=== PATIENT | male | born 1970 | race African-American/Black ===

== ENCOUNTER 2021-12-25 04:08 | Emergency (ER) | payer OTHER ==
[~2021-12-25] VITALS: Ht 182.9 cm; Wt 95.4 kg
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
[2021-12-25] MEDS ORDERED: KETOROLAC 30 MG/ML VIAL. IVP ONE ×3 (04:15→05:00)
[2021-12-25] MEDS ORDERED: FAMOTIDINE 20 MG/2 ML VIAL ONE (04:29)
[2021-12-25 04:38] LABS: BASO # 0.1 x10^3/uL (0.0-0.2); BASO % 1 % (0-3); EOS # 0.1 x10^3/uL (0.0-0.7); EOS % 1 % (0-3); HEMATOCRIT 41.8 % (39.0-53.0); HEMOGLOBIN 13.8 g/dL (13.0-17.5); LYMPH # 3.5 x10^3/uL (1.0-4.8); LYMPH % 44 % (24-48); MEAN CORPUSCULAR HEMOGLOBIN 31 pg (25-35); MEAN CORPUSCULAR HGB CONC 33 g/dL (31-37); MEAN CORPUSCULAR VOLUME 93 fL (79-100); MONO # 0.7 x10^3/uL (0.0-1.1); MONO % 8 % (0-9); NEUT # 3.6 x10^3uL (1.8-7.7); NEUT % 45 % (31-73); PLATELET COUNT 290 x10^3/uL (140-400); RED BLOOD COUNT 4.47 x10^6/uL (4.30-5.70); RED CELL DISTRIBUTION WIDTH 14.4 % (11.5-14.5)
[2021-12-25 04:44] LABS: BACTERIA,URINE 0 /HPF (0-FEW); BILIRUBIN,URINE NEG (NEG); CLARITY,URINE CLEAR; COLOR,URINE YELLOW; GLUCOSE,URINE NEG (NEG); NITRITE,URINE NEG (NEG); RBC,URINE OCC /HPF (0-2); SQUAMOUS EPITHELIAL CELL,UR OCC /LPF; WBC,URINE OCC /HPF (0-4)
[2021-12-25 04:48] LABS: ANION GAP 9 (6-14); BLOOD UREA NITROGEN 13 mg/dL (8-26); CALCIUM 9.1 mg/dL (8.5-10.1); CARBON DIOXIDE 27 mmol/L (21-32); CHLORIDE 100 mmol/L (98-107); CREATININE 1.2 mg/dL (0.7-1.3); GFR 64.4; GLUCOSE 96 mg/dL (70-99); POTASSIUM 3.7 mmol/L (3.5-5.1); SODIUM 136 mmol/L (136-145)
[2021-12-25 04:53] LABS: ALBUMIN 3.6 g/dL (3.4-5.0); ALK PHOS 81 U/L (46-116); ALT (SGPT) 21 U/L (16-63); AST (SGOT) < 5 U/L (15-37); DIRECT BILIRUBIN 0.1 mg/dL (0.0-0.2); LIPASE 126 U/L (73-393); TOTAL BILIRUBIN 0.2 mg/dL (0.2-1.0); TOTAL PROTEIN 8.2 g/dL (6.4-8.2)
[2021-12-25 04:53] LABS: BARBITURATES NEG (NEG); BENZODIAZEPINES NEG (NEG); CANNABINOIDS NEG (NEG); COCAINE NEG (NEG); METHADONE NEG (NEG); OPIATES NEG (NEG); PHENCYCLIDINE NEG (NEG)
[2021-12-25 04:58] LABS: AMPHETAMINE/METHAMPHETAMINE NEG (NEG)
--- NOTE | 2021-12-25 04:58 | RAD ---
Abdominal and Pelvis CT, Without Contrast: History: Reason: Severe right flank pain / Spl. Instructions: / History: Comparison: None. Procedure: Axial images are obtained of the abdomen and pelvis, without IV or oral contrast. Oral Contrast: No Findings: Evaluation of solid organs is limited without contrast. Liver: Normal. Spleen: Normal. Pancreas: Normal. Adrenal Glands: Normal. Kidneys: There is multiple cysts on the left. There is no free air or free fluid. There is calcifications in the bita hepatis which could be calcified granuloma. The gallbladder is normal. The appendix is normal. The urinary bladder appears normal. There is no pericolonic inflammation identified. Impression: No acute findings. End impression PQRS Compliance Statement: One or more of the following individualized dose reduction techniques were utilized for this examinat ion: 1. Automated exposure control 2. Adjustment of the mA and/or kV according to patient size 3. Use of iterative reconstruction technique Electronically signed by: Justin Harmon III, MD (12/25/2021 4:55 AM) [facility]
[2021-12-25] MEDS ORDERED: FAMOTIDINE 20 MG/2 ML VIAL IVP ONE (05:00)
[2021-12-25] MEDS ORDERED: IV RINGERS SOLUTION,LACTATED 1,000 ML IV SCH (05:00)
[2021-12-25] MEDS ORDERED: ONDANSETRON PF 4 MG/2 ML VIAL. IVP ONE ×2 (05:00→06:30)
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
[2021-12-25] MEDS ORDERED: CONTRAST GIVEN. MC PRN (05:15)
[2021-12-25] MEDS ORDERED: IOHEXOL 350 MG/ML 100 ML VIAL. IV ONE (05:30)
--- NOTE | 2021-12-25 05:43 | RAD ---
CTA Chest with contrast: Clinical History: Dyspnea and pulmonary nodule. Axial helical images of the chest were obtained after the administration of 100 cc of IV Omnipaque 35 0 and timed appropriately for a pulmonary arterial study. Conventional axial reconstruction was perf ormed in addition to coronal, sagittal and bilateral oblique MIP (maximum intensity projection). Thi s study was ordered to detect possible pulmonary embolism. There are no filling defects to suggest pulmonary embolism. There is a 2.3 x 1.9 cm spiculated mass in right upper lobe. There is a 1.1 cm spiculated mass in thi s diffuse emphysematous changes lungs. This calcified granuloma in the mediastinum. The right lower l obe. The thoracic aorta appears normal. Impression: 1. No evidence of pulmonary embolism. 2. 2 masses on the right unchanged from prior study. There has been previous biopsy. Recommend corre lation with biopsy results. No new findings. End of impression PQRS Compliance Statement: One or more of the following individualized dose reduction techniques were utilized for this examinat ion: 1. Automated exposure control 2. Adjustment of the mA and/or kV according to patient size 3. Use of iterative reconstruction technique Electronically signed by: Justin Harmon III, MD (12/25/2021 5:40 AM) [facility]
[2021-12-25] MEDS ORDERED: HYDR-1179 PO (05:59)
[2021-12-25] MEDS ORDERED: ONDA-85 PO (05:59)
[2021-12-25 06:01] VITALS: BP 111/71
[2021-12-25] MEDS ORDERED: MORPHINE SULFATE 10 MG/ML SYRINGE. SQ ONE (06:30)
== END 2021-12-25 06:20 | disposition home or self-care (01) ==
LOC: ER 04:08
DX: R91.1 Solitary pulmonary nodule (principal); R10.31 Right lower quadrant pain; Z88.1 Allergy status to other antibiotic agents
CPT/HCPCS: 36415; 71275; 74022; 74176; 80048; 80076; 80307; 81001; 83690; 85025; 96361; 96372; 96374; 96375; 96376; 99285; J1885; J2270; J2405; J3490; J7120; Q9967